=== PATIENT | female | born 1975 | race Caucasian/White ===

== ENCOUNTER 2022-05-05 16:09 | Emergency (ER) | payer BC, OTHER ==
[~2022-05-05] VITALS: Ht 170.2 cm; Wt 126.1 kg
[2022-05-05] MEDS ORDERED: HYDROMORPHONE 1 MG/1 ML DISP.SYRIN IV ONE ×2 (17:00→21:30)
--- NOTE | 2022-05-05 17:10 | NUR ---
iv access 20g r ac. blood drawn and sent to lab.
--- NOTE | 2022-05-05 17:11 | NUR ---
at bedside for eval.
--- NOTE | 2022-05-05 17:15 | NUR ---
urine collected and sent to lab.
[2022-05-05 17:18] LABS: BASOPHILS % (AUTO) 0.2 % (0.0-2.0); EOSINOPHILS % (AUTO) 1.4 % (0.0-6.0); HEMATOCRIT 37 % (33-45); HEMOGLOBIN 11.6 g/dL (11.5-14.8); LYMPHOCYTES # (AUTO) 1.9 K/uL (0.8-4.8); LYMPHOCYTES % (AUTO) 19.3 % (20.0-44.0); MEAN CORPUSCULAR HGB CONC 32 g/dl (31.0-36.0); MEAN CORPUSCULAR VOLUME 83 fL (82-100); MONOCYTES # (AUTO) 0.6 K/uL (0.1-1.30); MONOCYTES % (AUTO) 5.8 % (2.0-12.0); NEUTROPHILS # (AUTO) 7.2 K/uL (1.8-8.9); NEUTROPHILS % (AUTO) 73.3 % (43.0-81.0); PLATELET COUNT (AUTO) 371 K/uL (150-450); RED BLOOD CELL COUNT(AUTO) 4.41 MIL/uL (4.0-5.2); WHITE BLOOD COUNT (AUTO) 9.9 K/uL (4.3-11.0)
[2022-05-05] MEDS ORDERED: HYDROMORPHONE 1 MG/1 ML DISP.SYRIN ONE ×2 (17:20→21:28)
--- NOTE | 2022-05-05 17:26 | NUR ---
medicated as ordered. i informed dr. laureano regarding the pt's allergy to morphine. dr. laureano at bedside. dilaudid given with dosage as ordered.
[2022-05-05 17:38] LABS: CALCIUM, SERUM 8.9 mg/dL (8.5-10.1); CREATININE 0.9 mg/dL (0.6-1.3); POTASSIUM 3.7 mmol/L (3.5-5.1)
[2022-05-05 17:45] LABS: ALBUMIN 3.4 g/dL (3.4-5.0); BILIRUBIN,DIRECT 0.1 mg/dL (0.0-0.2); BILIRUBIN,TOTAL 0.4 mg/dL (0.2-1.0); TOTAL PROTEIN, SERUM 7.9 g/dL (6.4-8.2)
--- NOTE | 2022-05-05 17:56 | NUR ---
CALLED [facility] REGARDING PT POSSIBLE TRANSFER TO [facility] PER DR. LAITH CHU (PRIMARY OBGYN) REQUEST. FAXED PT CLINICALS TO [phone] AWAITING A CALL BACK REGARDING TRANSFER UPDATE
[2022-05-05] MEDS ORDERED: ONDANSETRON HCL/PF 4 MG/2 ML VIAL ONE (18:29)
[2022-05-05] MEDS ORDERED: ONDANSETRON HCL/PF - ER 4 MG/2 ML VIAL IV ONE (18:30)
[2022-05-05 18:32] LABS: BILIRUBIN,URINE NEGATIVE (NEGATIVE); COLOR,URINE YELLOW (YELLOW); LEUKOCYTE ESTERASE ,URINE 1+ (NEGATIVE); NITRITE, URINE NEGATIVE (NEGATIVE); PROTEIN,URINE NEGATIVE (NEGATIVE); UGLUCOSE NEGATIVE (NEGATIVE); UROBILINOGEN,URINE 0.2 EU/dL (0.2)
[2022-05-05] MEDS ORDERED: CEFTRIAXONE 1GM BAG (ER ONLY) 1 GM/50 ML PIGGYBACK IV ONE (19:30)
[2022-05-05 19:57] LABS: BACTERIA,URINE 2+ /HPF (None Seen); RBC,URINE 0-2 /HPF (0-2); SQUAMOUS EPITHELIAL CELL,UR 21-50 /HPF (None Seen)
[2022-05-05] MEDS ORDERED: CEFTRIAXONE 1GM BAG (ER ONLY) 50 ML IV ONE (20:11)
--- NOTE | 2022-05-05 20:13 | NUR ---
CLINICALS WERE FAXED TO [facility]. FAX [phone]
[2022-05-05] MEDS ORDERED: ONDA4TAB11 PO (21:57)
[2022-05-05] MEDS ORDERED: KETO10TA2 PO (21:57)
[2022-05-05] MEDS ORDERED: KETOROLAC TROMETHAMINE INJ 30 MG/ML VIAL IV ONE (22:00)
--- NOTE | 2022-05-05 22:46 | NUR ---
Patient discharged to home in stable condition. Written and verbal after care instructions given. Patient verbalizes understanding of instruction.
[2022-05-05 23:31] VITALS: BP 124/68
== END 2022-05-05 23:32 | disposition home or self-care (01) ==
LOC: ER 16:11
DX: R10.12 Left upper quadrant pain (principal); R10.32 Left lower quadrant pain; N83.209 Unspecified ovarian cyst, unspecified side; Z20.822 Contact with and (suspected) exposure to COVID-19; Z90.710 Acquired absence of both cervix and uterus; Z88.5 Allergy status to narcotic agent
CPT/HCPCS: 99285; 96365; 96375; 76856; 74150; 87426; 96376; 85025; 80048; 87086; 83690; 80076; 84703; 81001; 36415; 85730; J2405 ×2; J0696; J1170 ×2; C9803